=== PATIENT | female | born 1990 | race Two or more races ===

== ENCOUNTER 2017-11-28 00:33 | Emergency (ER) | payer MEDICAID ==
[~2017-11-28] VITALS: Ht 157.5 cm; Wt 72.6 kg
[2017-11-28 00:43] VITALS: BP 111/74
--- NOTE | 2017-11-28 01:16 | NUR ---
DR. CHAVEZ AT BEDSIDE FOR EVAL.
[2017-11-28] MEDS ORDERED: IBUPROFEN 600 MG TABLET PO ONE ×2 (01:27→01:30)
== END 2017-11-28 01:37 | disposition home or self-care (01) ==
LOC: ER 00:33
DX: R07.89 Other chest pain (principal)
CPT/HCPCS: A4606; Z7610

== ENCOUNTER 2019-06-10 22:25 | Emergency (ER) | payer MEDICAID ==
[~2019-06-10] VITALS: Ht 157.5 cm; Wt 72.6 kg
--- NOTE | 2019-06-10 23:00 | NUR ---
BIBSELF C/O HEADACHE X1 DAY. +NONPRODUCTIVE COUGH,+FEVER, +N/V. H/A NOT RELIVED BY TYLENOL
[2019-06-10] MEDS ORDERED: diphenhydrAMINE HCL 50 MG/ML VIAL ONE (23:08)
[2019-06-10] MEDS ORDERED: KETOROLAC TROMETHAMINE INJ 30 MG/ML VIAL ONE (23:08)
[2019-06-10] MEDS ORDERED: METOCLOPRAMIDE HCL 10 MG/2 ML VIAL ONE (23:08)
--- NOTE | 2019-06-10 23:22 | NUR ---
pt reported past surgery of tubal ligation and signd a waiver for .
[2019-06-10] MEDS ORDERED: IV NS 0.9% 1,000 ML BAG IV ONE (23:30)
[2019-06-10] MEDS ORDERED: METOCLOPRAMIDE HCL 10 MG/2 ML VIAL IV ONE (23:30)
[2019-06-10] MEDS ORDERED: KETOROLAC TROMETHAMINE INJ 30 MG/ML VIAL IV ONE (23:30)
[2019-06-10] MEDS ORDERED: diphenhydrAMINE HCL 50 MG/ML VIAL IV ONE (23:30)
--- NOTE | 2019-06-11 01:26 | NUR ---
IV removed. Catheter intact and site benign. Pressure and 4x4 applied to site. No bleeding noted.Patient discharged to home in stable condition. Rx and Written and verbal after care instructions given. Patient verbalizes understanding of instruction.
[2019-06-11 01:28] VITALS: BP 102/60
== END 2019-06-11 01:28 | disposition home or self-care (01) ==
LOC: ER 22:30
DX: J06.9 Acute upper respiratory infection, unspecified (principal)
CPT/HCPCS: 71045; 84703; 96361; 96374; 96375; 99284; J1200; J1885; J2765; J7030

== ENCOUNTER 2019-09-10 20:32 | Emergency (ER) | payer MEDICAID ==
[~2019-09-10] VITALS: Ht 154.9 cm; Wt 81.6 kg
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
--- NOTE | 2019-09-10 22:41 | NUR ---
Gelacio RICKS PA-C IS AT THE BEDSIDE SPEAKING TO THE PT.
--- NOTE | 2019-09-10 23:00 | NUR ---
Patient discharged to home in stable condition. Written and verbal after care instructions given. Patient verbalizes understanding of instruction AND RX. PT WAS INSTRUCTED NOT TO DRIVE WHILE TAKING THE PAIN MEDICATION. PT AMBULATED OUT WITH A STEADY GAIT. VSS. NAD NOTED.
[2019-09-10 23:04] VITALS: BP 116/62
== END 2019-09-10 22:59 | disposition home or self-care (01) ==
LOC: ER 20:35
DX: S39.012A Strain of muscle, fascia and tendon of lower back, initial encounter (principal); Z98.890 Other specified postprocedural states; V49.49XA Driver injured in collision with other motor vehicles in traffic accident, initial encounter; Y93.89 Activity, other specified; Y92.488 Other paved roadways as the place of occurrence of the external cause; Y99.8 Other external cause status

== ENCOUNTER 2022-07-02 22:09 | Emergency (ER) | payer MEDICAID ==
[~2022-07-02] VITALS: Ht 167.6 cm; Wt 72.6 kg
--- NOTE | 2022-07-02 22:25 | NUR ---
BS 101mg/dl
--- NOTE | 2022-07-02 22:26 | NUR ---
TELEMED REQUEST SENT, AWAITING CALL BACK FROM DR BOLDEN NEURO
--- NOTE | 2022-07-02 22:26 | NUR ---
BLOOD COLLECTED AND SENT TO LAB
--- NOTE | 2022-07-02 22:28 | NUR ---
BIBS C/O LEFT SIDED WEAKNESS. LWKT 2119 WITH NIHSS SCORE OF 2 BS 101 AT TRIAGE. PATIENT ALERT AND ORIENTED X3. AMBULATORY WITH NON LABORED BREATHING. IN BED 05 ON MONITOR AND POX, AWAITING MD PEARCE.
--- NOTE | 2022-07-02 22:28 | NUR ---
PATIENT GOING TO CT
[2022-07-02] MEDS ORDERED: IV NS 0.9% 250 ML IV ONE (22:30)
[2022-07-02] MEDS ORDERED: CT SWABBABLE VALVE TRANS SET 1 EA INFUS.SET MC ONE (22:30)
[2022-07-02] MEDS ORDERED: IOHEXOL-350 100 ML VIAL IV ONE (22:30)
[2022-07-02 22:34] LABS: BASOPHILS % (AUTO) 0.2 % (0.0-2.0); EOSINOPHILS % (AUTO) 0.6 % (0.0-6.0); HEMATOCRIT 39 % (33-45); HEMOGLOBIN 12.6 g/dL (11.5-14.8); LYMPHOCYTES # (AUTO) 2.4 K/uL (0.8-4.8); MEAN CORPUSCULAR HGB CONC 33 g/dl (31.0-36.0); MEAN CORPUSCULAR VOLUME 85 fL (82-100); MONOCYTES # (AUTO) 0.5 K/uL (0.1-1.30); NEUTROPHILS # (AUTO) 7.1 K/uL (1.8-8.9); NEUTROPHILS % (AUTO) 70.2 % (43.0-81.0); PLATELET COUNT (AUTO) 351 K/uL (150-450); RED BLOOD CELL COUNT(AUTO) 4.55 MIL/uL (4.0-5.2); WHITE BLOOD COUNT (AUTO) 10.1 K/uL (4.3-11.0)
[2022-07-02 22:42] LABS: CARBON DIOXIDE 28 mmol/L (21-32); CHLORIDE 105 mmol/L (98-107); CREATININE 1.1 mg/dL (0.6-1.3); GLUCOSE 112 mg/dL (74-106); POTASSIUM 3.9 mmol/L (3.5-5.1); SODIUM SERUM 139 mmol/L (136-145); UREA NITROGEN, BLOOD 13 mg/dL (7-18)
--- NOTE | 2022-07-02 22:52 | NUR ---
CXR DONE AT CT DEPT
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
--- NOTE | 2022-07-02 23:02 | NUR ---
PATIENT HAS NO ISSUES DURING SWALLOWING EVAL. PATIENT PASSED. DR RAMIREZ AND DR BENJAMIN INFORMED
[2022-07-02] MEDS ORDERED: diphenhydrAMINE HCL 50 MG/ML VIAL ONE (23:58)
[2022-07-02] MEDS ORDERED: METOCLOPRAMIDE HCL 10 MG/2 ML VIAL ONE (23:58)
[2022-07-02] MEDS ORDERED: KETOROLAC TROMETHAMINE 15 MG/ML VIAL ONE (23:58)
[2022-07-03] MEDS ORDERED: IV NS 0.9% 1,000 ML BAG IV ONE
[2022-07-03] MEDS ORDERED: METOCLOPRAMIDE HCL 10 MG/2 ML VIAL IV ONE
[2022-07-03] MEDS ORDERED: diphenhydrAMINE HCL 50 MG/ML VIAL IV ONE
[2022-07-03] MEDS ORDERED: KETOROLAC TROMETHAMINE INJ 30 MG/ML VIAL IV ONE
--- NOTE | 2022-07-03 02:15 | NUR ---
IV CANNULA REMOVED
--- NOTE | 2022-07-03 02:16 | NUR ---
Patient discharged to home in stable condition. Written and verbal after care instructions given. Patient verbalizes understanding of instruction.
[2022-07-03 02:21] VITALS: BP 112/81
== END 2022-07-03 02:23 | disposition home or self-care (01) ==
LOC: ER 22:16
DX: G43.909 Migraine, unspecified, not intractable, without status migrainosus (principal); Z98.890 Other specified postprocedural states
CPT/HCPCS: 99285; 70498; 71045; 93005; 70496; 85025; 80048; 36415; 84484; 85730; 82962; 70450; 96374; 96375; 96361; J1200; J2765; J7030; J7050; Q9967; J1885

== ENCOUNTER 2022-07-03 23:23 | Emergency (ER) | payer MEDICAID ==
[2022-07-03] MEDS ORDERED: LORAZEPAM 0.5 MG TABLET ONE (23:44)
[2022-07-04] MEDS ORDERED: LORAZEPAM 1 MG TABLET PO ONE
== END 2022-07-03 23:51 | disposition home or self-care (01) ==
LOC: ER 23:25
DX: F41.9 Anxiety disorder, unspecified (principal)

== ENCOUNTER 2023-01-26 16:02 | Emergency (ER) | payer MEDICAID ==
[~2023-01-26] VITALS: Ht 154.9 cm; Wt 81.6 kg
[2023-01-26 16:18] VITALS: BP 131/60
== END 2023-01-26 17:24 | disposition home or self-care (01) ==
LOC: ER 16:07
DX: R25.3 Fasciculation (principal); F41.9 Anxiety disorder, unspecified; G43.909 Migraine, unspecified, not intractable, without status migrainosus